=== PATIENT | female | born 1985 | race Two or more races ===

== ENCOUNTER 2022-03-19 21:25 | Emergency (ER) | payer MEDICAID ==
[~2022-03-19] VITALS: Ht 165.1 cm; Wt 55.5 kg
[2022-03-19 22:00] VITALS: BP 110/58
== END 2022-03-20 07:47 | disposition left against medical advice (07) ==
LOC: ER 21:25
DX: Z53.21 Procedure and treatment not carried out due to patient leaving prior to being seen by health care provider (principal)